=== PATIENT | female | born 1985 | race Caucasian/White ===

== ENCOUNTER 2018-01-20 19:52 | Emergency (ER) | payer BC, OTHER ==
[2018-01-20 20:18] VITALS: BP 110/67; PULSE 71; TEMP 99; BMI 25.0
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
[2018-01-20] MEDS ORDERED: IBUPROFEN 600 MG TABLET (FP) PO ONE ×2 (20:52→20:56)
== END 2018-01-21 01:37 | disposition home or self-care (01) ==
LOC: JER 19:52
DX: S82.142A Displaced bicondylar fracture of left tibia, initial encounter for closed fracture (principal); S20.311A Abrasion of right front wall of thorax, initial encounter; S50.811A Abrasion of right forearm, initial encounter; V01.90XA Pedestrian on foot injured in collision with pedal cycle, unspecified whether traffic or nontraffic accident, initial encounter; Y92.414 Local residential or business street as the place of occurrence of the external cause; Y93.89 Activity, other specified; Y99.8 Other external cause status
CPT/HCPCS: 36415; 73552-TC-LT-FY; 73562-TC-LT-FY; 73590-TC-LT-FY; 73610-TC-LT-FY; 73700-TC-RT; 84703; 99282-25